=== PATIENT | female | born 1930 | race Caucasian/White ===

== ENCOUNTER 2019-01-08 11:38 | Emergency (ER) | payer MEDICARE ==
[~2019-01-08] VITALS: Ht 147.3 cm; Wt 37.6 kg
[~2019-01-08 11:38] MED LIST: DOXY100T PO; GUAI600T47 PO; PRED-220 PO; PRED50TA PO
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
[2019-01-08] MEDS ORDERED: ACETAMINOPHEN 325 MG TABLET. PO ONE (12:15)
--- NOTE | 2019-01-08 13:25 | RAD ---
CT study of the lumbar spine without contrast Clinical indications: Low back pain for one year. Injury. TECHNIQUE: Noncontrast helical CT scanning of the lumbar spine was performed. Multiplanar 2-D reconstructions were generated. PQRS compliance Statement One or more of the following individualized dose reduction techniques were utilized for this study: 1. Automated exposure control 2. Adjustment of the mA and/or kV according to patient size 3. Use of iterative reconstruction technique COMPARISON: None available. FINDINGS: Levoscoliosis is seen. The transverse processes are intact. No discitis or lytic process is seen. Grade 2 anterolisthesis of L5-S1 is seen secondary to bilateral facet arthropathy. No spondylolysis is seen. There are nondisplaced comminuted fractures of both sides of the sacral ala which extends into the midportion of S1 and S2. There is a horizontal fracture line seen extending through the posterior elements of S2 on both sides. There is increased angulation or kyphosis of the midportion of S2 as a result of the fracture. No anterior/posterior displacement is seen. No diastases of the SI joint is seen on either side. IMPRESSION: Sacral insufficiency fractures of the sacral ala and sacral vertebral bodies extending through from anterior to posterior at the S2 level with increased kyphotic angulation of the midportion of S2 without anterior/ posterior displacement. Electronically signed by: Livan Perea MD (01/08/2019 1:23 PM) [id number]
[2019-01-08 14:41] VITALS: BP 153/73
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
== END 2019-01-08 15:20 | disposition home or self-care (01) ==
LOC: ER 11:38
DX: S32.19XA Other fracture of sacrum, initial encounter for closed fracture (principal); E78.00 Pure hypercholesterolemia, unspecified; Z90.89 Acquired absence of other organs; Z90.710 Acquired absence of both cervix and uterus; W18.39XA Other fall on same level, initial encounter; Y93.89 Activity, other specified; Y92.89 Other specified places as the place of occurrence of the external cause; Y99.8 Other external cause status
CPT/HCPCS: 72131; 99284